=== PATIENT | male | born 1960 | race Caucasian/White ===

== ENCOUNTER → 2017-11-16 08:53 | Outpatient (CLI) | payer OTHER ==
[~2017-11-16 08:53] MED LIST: ATORVASTATIN CA40 MG PO; CATAFLAN PO; COZAAR50 MG PO; DUI500 PO; HYDROCHLOROTH12.5 M1 PO; INTEGRA PLUS C1 EACH PO; LOSARTAN-HCTZ1 EAC2 PO; METROPOLO PO; NORVASC5 MG PO; OXYC1TAB9 PO; XARELTO10 MG PO; ZOCOR20 MG PO
== END | disposition home or self-care (01) ==
LOC: EKG 08:53
DX: I10 Essential (primary) hypertension (principal)

== ENCOUNTER 2017-11-16 13:00 | Inpatient (IN) | payer OTHER ==
[~2017-11-16] VITALS: Ht 172.7 cm; Wt 113.4 kg
[~2017-11-16 13:00] MED LIST changes: -ATORVASTATIN CA40 MG PO; -CATAFLAN PO; -COZAAR50 MG PO; -HYDROCHLOROTH12.5 M1 PO; -INTEGRA PLUS C1 EACH PO; -METROPOLO PO; -XARELTO10 MG PO
[2017-11-16] MEDS ORDERED: COZAAR50 MG PO (14:21)
[2017-11-16] MEDS ORDERED: METROPOLO PO (14:22)
[2017-11-16] MEDS ORDERED: ATORVASTATIN CA40 MG PO (14:22)
[2017-11-16] MEDS ORDERED: CATAFLAN PO (14:23)
[2017-11-16] MEDS ORDERED: HYDROCHLOROTH12.5 M1 PO (14:24)
[2017-11-23] MEDS ORDERED: XARELTO10 MG PO (06:26)
[2017-11-23] MEDS ORDERED: OXYC1TAB9 PO (06:26)
[2017-11-23] MEDS ORDERED: INTEGRA PLUS C1 EACH PO (06:26)
== END 2017-11-23 17:06 | DRG 470 ==
LOC: SURG 11-21 05:51 → O/R 11-21 05:51 → SURH 11-21 12:12 → SURG 11-21 14:04
PROVIDERS: Orthopaedic Surgery Sports Medicine
PROC: 0SRC0J9 Replacement of Right Knee Joint with Synthetic Substitute, Cemented, Open Approach (ICD-10-PCS; principal; 2017-11-21 13:15)
DX: M17.11 Unilateral primary osteoarthritis, right knee (principal); I10 Essential (primary) hypertension; E66.01 Morbid (severe) obesity due to excess calories; E78.4 Other hyperlipidemia

== ENCOUNTER 2019-04-18 09:00 | Inpatient (IN) | payer OTHER ==
[~2019-04-18] VITALS: Ht 172.7 cm; Wt 112.0 kg
[~2019-04-18 09:00] MED LIST changes: +ATORVASTATIN CA40 MG PO; +CATAFLAN PO; +COZAAR50 MG PO; +HYDROCHLOROTH12.5 M1 PO; +INTEGRA PLUS C1 EACH PO; +METROPOLO PO; +XARELTO10 MG PO
[2019-04-18] MEDS ORDERED: TOPROL XL25 M1 PO (13:00)
[2019-04-18] MEDS ORDERED: NORVASC10 MG PO (13:00)
[2019-04-18] MEDS ORDERED: COZAAR100 MG PO (13:00)
[2019-04-18] MEDS ORDERED: HYDROCHLOROTHIA25 MG PO (13:00)
[2019-04-23] MEDS ORDERED: LATANOPROST2.5 ML OP (08:30)
[2019-04-23] MEDS ORDERED: DORZOLAMIDE-TIM10 ML OP (08:30)
[2019-04-24] MEDS ORDERED: DICLOFENAC POTA50 MG PO (08:07)
[2019-04-26] MEDS ORDERED: INTEGRA PLUS C1 EACH PO (07:23)
[2019-04-26] MEDS ORDERED: CODE1TAB37 PO (07:23)
[2019-04-26] MEDS ORDERED: XARELTO10 MG PO (07:23)
== END 2019-04-26 11:11 | DRG 470 ==
LOC: O/R 09:00 → SURH 04-23 05:00 → O/R 04-23 05:00 → SURH 04-23 11:31
PROVIDERS: ADMIT Orthopaedic Surgery Sports Medicine
PROC: 0SRD0J9 Replacement of Left Knee Joint with Synthetic Substitute, Cemented, Open Approach (ICD-10-PCS; principal; 2019-04-23 10:45)
DX: M17.12 Unilateral primary osteoarthritis, left knee (principal); I10 Essential (primary) hypertension; E66.01 Morbid (severe) obesity due to excess calories

== ENCOUNTER 2020-05-28 12:48 | Outpatient (CLI) | payer OTHER ==
[~2020-05-28 12:48] MED LIST changes: +CODE1TAB37 PO; +COZAAR100 MG PO; +DICLOFENAC POTA50 MG PO; +DORZOLAMIDE-TIM10 ML OP; +HYDROCHLOROTHIA25 MG PO; +LATANOPROST2.5 ML OP; +NORVASC10 MG PO; +TOPROL XL25 M1 PO
== END 2020-05-28 16:44 | disposition home or self-care (01) ==
LOC: TOM 12:48
PROVIDERS: ATTEND Otolaryngology
DX: J31.0 Chronic rhinitis (principal)

== ENCOUNTER 2020-06-09 07:37 | Outpatient (CLI) | payer OTHER | END 2020-06-09 07:43 | disposition home or self-care (01) | LOC: NUCLEAR 07:37 | PROVIDERS: ATTEND Internal Medicine | DX: I73.89 Other specified peripheral vascular diseases (principal); I70.209 Unspecified atherosclerosis of native arteries of extremities, unspecified extremity; I82.90 Acute embolism and thrombosis of unspecified vein; I74.3 Embolism and thrombosis of arteries of the lower extremities ==

== ENCOUNTER 2020-06-10 07:39 | Outpatient (CLI) | payer OTHER | END 2020-06-10 07:48 | disposition home or self-care (01) | LOC: NUCLEAR 07:39 | PROVIDERS: ATTEND Otolaryngology | DX: I73.89 Other specified peripheral vascular diseases (principal); I70.209 Unspecified atherosclerosis of native arteries of extremities, unspecified extremity; I82.403 Acute embolism and thrombosis of unspecified deep veins of lower extremity, bilateral ==

== ENCOUNTER 2021-03-11 14:43 | Outpatient (CLI) | payer OTHER ==
[2021-03-12] MEDS ORDERED: TOPROL XL25 M1 PO (23:52)
[2021-03-12] MEDS ORDERED: PLETAL PO (23:52)
[2021-03-12] MEDS ORDERED: ZETIA10 MG PO (23:52)
[2021-03-12] MEDS ORDERED: NORVASC5 MG PO (23:52)
[2021-03-12] MEDS ORDERED: NEURONTIN300 MG PO (23:53)
== END 2021-03-11 14:50 | disposition home or self-care (01) ==
LOC: LAB 14:43
PROVIDERS: ATTEND Internal Medicine
DX: D64.89 Other specified anemias (principal); Z00.8 Encounter for other general examination

== ENCOUNTER 2021-03-12 23:36 | Emergency (ER) | payer OTHER ==
[~2021-03-12] VITALS: Ht 172.7 cm; Wt 122.5 kg
[2021-03-12] MEDS ORDERED: TOPROL XL25 M1 PO (23:52)
[2021-03-12] MEDS ORDERED: ZETIA10 MG PO (23:52)
[2021-03-12] MEDS ORDERED: NORVASC5 MG PO (23:52)
[2021-03-12] MEDS ORDERED: PLETAL PO (23:52)
[2021-03-12] MEDS ORDERED: NEURONTIN300 MG PO (23:53)
[2021-03-13] MEDS ORDERED: LEVOFLOXACIN500 MG PO ×3 (02:46→02:47)
[2021-03-13] MEDS ORDERED: MEDROL8 MG PO (02:47)
[2021-03-13] MEDS ORDERED: BENADRYL25 MG PO (02:47)
== END 2021-03-13 02:59 ==
LOC: ER 23:36
DX: T78.40XA Allergy, unspecified, initial encounter (principal); R21 Rash and other nonspecific skin eruption; I10 Essential (primary) hypertension

== ENCOUNTER → 2024-05-09 07:55 | Outpatient (CLI) | payer OTHER ==
[~2024-05-09 07:55] MED LIST changes: +BENADRYL25 MG PO; +LEVOFLOXACIN500 MG PO; +MEDROL8 MG PO; +NEURONTIN300 MG PO; +PLETAL PO; +ZETIA10 MG PO
[2024-05-09 08:31] LABS: PH,URINE 6.5 (5.0-8.0); URINE APPEARANCE Clear; URINE BILIRRUBIN Negative (NEGATIVE); URINE BLOOD Negative; URINE COLOR Dark Yellow; URINE GLUCOSE Negative (NEGATIVE); URINE KETONE Negative (NEGATIVE); URINE LEUKOCYTE Negative; URINE NITRATE Negative; URINE PROTEIN Negative (NEGATIVE); URINE UROBILINOGEN 0.2 E.U./dl
[2024-05-09 08:32] LABS: URINE EPITHELIAL CELLS 2.3 uL (0.0-38.8); URINE WBC 2.2 uL (0.0-23.2)
[2024-05-09 08:32] LABS: HEMATOCRIT 42.8 % (39.0-48.0); HEMOGLOBIN 14.7 g/dL (13-16.00); MEAN CORPUSCULAR HEMOGLOBIN 32.9 pg (27.00-32.0); MEAN CORPUSCULAR HGB CONC 34.3 g/dl (32.0-36.0); PLATELET COUNT 230 K/uL (150-450); RED BLOOD COUNT 4.46 M/uL (4.00-6.00)
[2024-05-09 08:37] LABS: URINE CAST 0.14 uL (0.0-1.40)
[2024-05-09 09:52] LABS: BILIRUBIN TOTAL 0.74 mg/dL (0.3-1.2); CALCIUM 9.4 mg/dL (8.5-10.1); CHOL HDL RATIO 2.2 (0-5.0); CREATININE SERUM 0.74 mg/dL (0.70-1.30); GFR 105.82; POTASSIUM 4.57 mEq/L (3.5-5.1); PROSTATIC SPECIFIC ANTIGEN 0.151 NG/ML (0.010-4.00); T4 FREE 1.02 NG/ML (0.76-1.46); TSH 1.12 uIU/mL (0.358-3.74)
== END | disposition home or self-care (01) ==
LOC: LAB 07:55
PROVIDERS: ATTEND Internal Medicine
DX: D50.8 Other iron deficiency anemias (principal); E11.9 Type 2 diabetes mellitus without complications; E78.2 Mixed hyperlipidemia; E03.9 Hypothyroidism, unspecified; E55.9 Vitamin D deficiency, unspecified; N39.0 Urinary tract infection, site not specified; N40.0 Benign prostatic hyperplasia without lower urinary tract symptoms; R80.9 Proteinuria, unspecified; R19.5 Other fecal abnormalities

== ENCOUNTER → 2024-08-23 06:16 | Outpatient (CLI) | payer OTHER ==
[2024-08-23 07:21] LABS: BASO % 0.4 % (0.1-1.2); EOS # 0.09 (0.04-0.54); EOS % 1.7 % (0.7-7.0); HEMATOCRIT 38.9 % (40.1-51.0); LYMPH # 1.24 (1.18-3.74); LYMPH % 23.4 % (19.3-53.1); MEAN CORPUSCULAR HEMOGLOBIN 33.1 pg (25.6-32.2); MONO # 0.54 (0.24-0.82); MONO % 10.2 % (4.7-12.5); NEUT % 63.9 % (34.0-71.1); PLATELET COUNT 237 K/uL (163-369); RED BLOOD COUNT 4.23 M/uL (4.63-6.08); RED CELL DISTRIBUTION WIDTH 12.3 % (11.6-14.4)
[2024-08-23 07:24] LABS: URINE APPEARANCE Clear; URINE BILIRRUBIN Negative (NEGATIVE); URINE BLOOD Negative; URINE GLUCOSE Negative (NEGATIVE); URINE KETONE Trace (NEGATIVE); URINE LEUKOCYTE Negative; URINE NITRATE Negative; URINE PROTEIN Trace (NEGATIVE)
[2024-08-23 07:28] LABS: URINE BACTERIA 61.1 uL (0.0-1933); URINE EPITHELIAL CELLS 3.3 uL (0.0-38.8); URINE RBC 11.6 uL (0.0-20.8); URINE WBC 4.2 uL (0.0-23.2)
[2024-08-23 07:32] LABS: URINE CAST 0.44 uL (0.0-1.40); URINE COLOR Dark YelloW
[2024-08-23 08:37] LABS: ALBUMIN 3.9 gm/dL (3.4-5.0); BILIRUBIN TOTAL 0.81 mg/dL (0.3-1.2); CALCIUM 8.7 mg/dL (8.5-10.1); CHOL HDL RATIO 2.7 (0-5.0); CREATININE SERUM 0.7 mg/dL (0.70-1.30); GFR 112.83; GLOBULINA 2.8 G/DL (2.4-3.5); POTASSIUM 4.08 mEq/L (3.5-5.1); TOTAL PROTEIN 6.7 gm/dL (6.4-8.2)
== END | disposition home or self-care (01) ==
LOC: LAB 06:16
PROVIDERS: ATTEND Internal Medicine
DX: D50.0 Iron deficiency anemia secondary to blood loss (chronic) (principal); E11.9 Type 2 diabetes mellitus without complications; E05.90 Thyrotoxicosis, unspecified without thyrotoxic crisis or storm; N39.0 Urinary tract infection, site not specified